=== PATIENT | female | born 1975 | race Caucasian/White ===

== ENCOUNTER 2025-05-21 11:43 | Emergency (ER) | payer OTHER, SELFPAY ==
[2025-05-21 11:47] VITALS: BP 143/80; PULSE 71; TEMP 37.2; O2SAT 96; BMI 25.8
--- NOTE | 2025-05-21 12:16 | ED.GENADUL1 ---
HPI HPI - General Adult General Chief complaint: Extremity Injury, Lower Stated complaint: LOWER EXTREMITY INJURY Time Seen by Provider: 05/21/25 12:07 Source: patient Mode of arrival: walk-in Limitations: no limitations History of Present Illness HPI narrative: Patient is a 49-year-old female that presents the emergency department with complaints of right ankle/foot swelling and pain after she tripped and fell down 1 step in her house. She has been ambulatory on it but the swelling is increasing and she has got some tingling into her foot. She denies any numbness. She wanted to get checked out as she is going to [facility] next week. Related Data Allergies Allergy/AdvReac Type Severity Reaction Status Date / Time Penicillins Allergy Severe Hives Verified 05/21/25 11:47 Opioid HPI Opioid Management Most Recent Opioid Data: Last Pain Scale 7 Today, 11:52 Review of Systems ROS Status of ROS 10 or more systems reviewed and unremarkable except as noted in history and below PFSH PFSH Social History Little interest or pleasure in doing things: not at all Feeling down, depressed, or hopeless: not at all Exam Narrative Exam Narrative: General: No distress, age-appropriate, patient ambulates with mildly antalgic gait. Skin: Warm, dry, no pallor. No rash. Head: Normocephalic, atraumatic. Eye: Pupils are equal, round and EOMI. No scleral icterus. Cardiovascular: Regular Rate and Rhythm without murmur, gallop or rub. Respiratory: No accessory muscle use or respiratory distress. Back: No midline thoracic or lumbar vertebral tenderness. Musculoskeletal: Full ROM of all extremities, no calf or popliteal tenderness. Right ankle lateral swelling, no ecchymosis. Deltoid and medial foot tenderness with palpation. Positive anterior drawer and lateral tilt test for pain, no instability. 2+ DP pulse palpated. Neurovascularly distally intact. Neurological: A&O x4. No cranial nerve dysfunction observed. No truncal ataxia. Moves all extremities. Sensation intact. Psychiatric: Cooperative and interactive. Normal mood and affect. Constitutional Vital Signs, click to edit/add: Last Vital Signs Temp 98.9 F 05/21/25 11:47 Pulse 71 05/21/25 11:47 Resp 18 05/21/25 11:47 BP 143/80 H 05/21/25 11:47 Pulse Ox 96 05/21/25 11:47 Documenting provider has reviewed patient's vital signs: yes Course Vital Signs Vital signs: Vital Signs Temperature 98.9 F 05/21/25 11:47 Pulse Rate 71 05/21/25 11:47 Respiratory Rate 18 05/21/25 11:47 Blood Pressure 143/80 H 05/21/25 11:47 Pulse Oximetry 96 05/21/25 11:47 Temperature 98.9 F 05/21/25 11:47 Pulse Rate 71 05/21/25 11:47 Respiratory Rate 18 05/21/25 11:47 Blood Pressure 143/80 H 05/21/25 11:47 Pulse Oximetry 96 05/21/25 11:47 Medical Decision Making MDM Narrative Medical decision making narrative: This is a 49-year-old female that tripped and fell down 1 step yesterday in her home. She has been ambulatory but reports increased swelling and some tingling into her foot now. She denies any numbness. She is traveling to [facility] next week and wanted get it checked out. On arrival patient sitting calmly on ED cart, ice on ankle. Pain is controlled. X-ray right foot/ankle ordered. Right foot and ankle x-rays negative for fracture or dislocation. No osseous abnormalities. I discussed results with patient and recommend limiting weightbearing, patient declines crutch use. She would like to try a walking boot. A tall cam walking boot was placed and patient can wear when out of bed. We discussed ROM exercises, elevation, compression, and ice. She can take OTC NSAIDs as needed for pain. She can wean out of the walking boot as soon as she can bear weight and ambulate without it without pain. She does have a follow-up with her PCP next week and would like to follow-up with her first. I recommended if pain is the same or worsening she should have an x-ray completed in 7 to 10 days. Patient was discharged in stable condition, pain controlled, with plan for close follow-up with PCP. Differential Diagnosis Differential Diagnosis: Right ankle sprain, ankle fracture, foot fracture Imaging Data X-ray right foot/ankle: Attestation: I have reviewed the pertinent imaging results. Radiologist's impression: ITS Impressions Ankle X-Ray 05/21/25 12:25 IMPRESSION: Soft tissue swelling without evidence of acute osseous abnormalities Impression dictated by: Berny Mancia M.D. 05/21/2025 1:02 PM Dictation Location: [email or web address] Electronically authenticated by: [id number] Y Date: 05/21/2025 13:02 Foot X-Ray 05/21/25 12:25 IMPRESSION:: Negative acute osseous abnormalities. Impression dictated by: Berny Mancia M.D. 05/21/2025 1:01 PM Dictation Location: [facility] Electronically authenticated by: [id number] Y Date: 05/21/2025 13:01 Discharge Plan Discharge Chief Complaint: Extremity Injury, Lower Clinical Impression: Ankle sprain Patient Disposition: Home, Self-Care Time of Disposition Decision: 13:26 Condition: Good Mode of Transportation: Private Vehicle Print Language: Liberian Instructions: Ankle Sprain (DC), Walking Boot (ED) Referrals: Yola Chaparro NP [Primary Care Provider] - 1 week Discharge Date/Time: 05/21/25 13:34
--- OUTSIDE RECORDS SUMMARY | 2025-05-21 12:19 | XMS_ITS | Clinical Summary ---
Author Organization [facility] Address [address], [address] [place] [address] Care Team Providers Care Fur Dressing Supervisor Name Role Phone Yola Moy APRN - PROTOTYPE FABRICATOR Primary Care Provider Allergies Active AllergyReactionsCriticalityNoted DateCommentsPenicillinsHives,RashMedium 02/04/2014 all over Medications MedicationSigDispense QuantityRefillsLast FilledStart DateEnd DateStatus Melatonin 10 MG TABS Indications:Primary insomniaTake 10 mg by mouth nightly 30 tablet 2Active polyethylene glycol (MIRALAX) 17 GM/SCOOP powder Mix 238 grams of Miralax with 64 ounces Gatorade (no red or purple) start drinking at 6:00 pm finish by 8:00 pm all of the prep 238 g 5Active fluticasone (FLONASE) 50 MCG/ACT nasal spray Indications:Allergic reaction, initial encounter,Acute non-recurrent pansinusitis,Acute effusion of both middle earsSPRAY 2 SPRAYS INTO EACH NOSTRIL EVERY DAY 1 each 5Active levocetirizine (XYZAL) 5 MG tablet Indications:Allergic reaction, initial encounter,Acute non-recurrent pansinusitis,Acute effusion of both middle earsTAKE 1 TABLET BY MOUTH EVERY DAY AT NIGHT 90 tablet 5Active omeprazole (PRILOSEC) 20 MG delayed release capsule Indications:Gastroesophageal reflux disease without esophagitisTAKE 1 CAPSULE BY MOUTH EVERY DAY IN THE MORNING BEFORE BREAKFAST 90 capsule 5Active FLUoxetine (PROZAC) 10 MG capsule Indications:Mood swings,Depression, unspecified depression typeTAKE 1 CAPSULE BY MOUTH EVERY DAY 90 capsule 5ActiveHospital, Clinic, or Other Facility Administered Medication Ordered DoseRouteFrequencyStart DateEnd DateStatus triamcinolone acetonide (KENALOG-40) injection 40 mg Indications:Allergy, subsequent udiauocok72 cpWFPPTC86/27/2024Active Active Problems ProblemNoted DateDiagnosed AgieAdjlyx23/25/1897Vqinlkqcec06/20/2024Mood swings 09/07/2023Gastroesophageal reflux disease without miphxxacpns23/20/2024ody mass index (BMI) of 29.0-29.9 in adult09/07/2023Fibroadenosis of xesrey7304/30/2022 Gastroesophageal reflux disease with gekgoiplnva18/13/2022ther fatigue 04/22/2022rimary rjnftwfy28/05/2022bnormal menstrual hpyimas5904/22/2022 Epigastric pain05/06/2017Breast lump on right side at 11 o'clock position 09/14/2016 Overview (09/14/2016): 09/14/2016 Referred for breast bx Migraine gdwavrcu79/29/2015 Assessment & Plan (06/01/2024 4:56 PM EST): Doing well on current medication Resolved Problems ProblemNoted DateDiagnosed DateResolved DateScreen for colon ropkdu6507/24/2024 08/23/2024Screen for colon sdnvdq14504/09/2024Screen for colon cancer /Screening, lipid/10/2021 Encounters DateTypeDepartmentCare YoojWsojbpadfbs57/24/2025Refill [address] [address] Yola Moy, HEAD STILL OPERATOR - PROTOTYPE FABRICATOR Medication Vkbivn9703/07/2025 2:30 PM EDTOffice Visit [address] [place] [address] Yola Moy, HEAD STILL OPERATOR - PROTOTYPE FABRICATOR Overweight with body mass index (BMI) of 26 to 26.9 in adult (Primary Dx); Weight gainfrom Last 3 Months Immunizations ImmunizationAdministration DatesNext DueCOVID-19, Inactive, MODERNA BLUE border, Primary or Immunocompromised, (age 12y+)11/09/2020,10/12/2020Influenza Vaccine, unspecified llchkmokzet36/11/2017Influenza, FLUARIX, FLULAVAL, FLUZONE (age 6 mo+) and AFLURIA, (age 3 y+), Quadv PF, 0.5mL03/25/2023,03/31/2018,05/18/2016 Influenza, FLUCELVAX, (age 6 mo+), MDCK, Quadv PF, 0.5mL04/22/2022TDaP, ADACEL (age 10y-64y), BOOSTRIX (age 10y+), IM, 0.5mL03/31/2018 Family History Medical HistoryRelationNameCommentsBreast CancerMaternal GrandmotherThyroid DiseaseMotherRelationNameStatusCommentsBrother 1AliveBrother 2AliveFatherAlive Maternal GrandmotherAliveMotherAliveSisterAlive Social History Tobacco UseTypesPacks/DayYears UsedDateSmoking Tobacco: NeverSmokeless Tobacco: Never Tobacco Cessation:Counseling Given: Not Answered Alcohol UseStandard Drinks/WeekCommentsYes0 (1 standard drink = 0.6 oz pure alcohol)Very minimal, like twice a month.Overall Financial Resource Strain (CARDIA)AnswerDate RecordedHow hard is it for you to pay for the very basics like food, housing, medical care, and heating?Not hard at all05/25/2024HQ-2 AnswerDate RecordedPHQ-9 Total Nyaia076Exercise Vital SignAnswerDate RecordedOn average, how many days per week do you engage in moderate to strenuous exercise (like a brisk walk)?4 days10/08/2024On average, how many minutes do you engage in exercise at this level?40 min10/08/2024Hunger Vital SignAnswerDate RecordedWithin the past 12 months, you worried that your food would run out before you got the money to buymore.Never true05/25/2024Within the past 12 months, the food you bought just didn't last and you didn't have money to get more.Never true05/25/2024RAPARE - TransportationAnswerDate RecordedLack of Transportation (Medical)Not on file05/25/2024In the past 12 months, has lack of transportation kept you from meetings, work, or from getting things needed for daily living?No05/25/2024Housing Stability Vital SignAnswerDate Recorded Unable to Pay for Housing in the Last YearNot on file03/25/2023Number of Places Lived in the Last YearNot on file03/25/2023In the last 12 months, was there a time when you did not have a steady place to sleep or slept in annaelter (including now)?No03/25/2023Housing Stability Vital SignAnswerDate Recorded Unable to Pay for Housing in the Last YearNot on file05/25/2024Number of Times Moved in the Last YearNot on file05/25/2024t any time in the past 12 months, were you homeless or living in a senior living (including now)?No05/25/2024Food InsecurityAnswerDate RecordedWithin the past 12 months, you worried that your food would run out before you got the money to buymore.Within the past 12 months, the food you bought just didn't last and you didn't have money to get more.regnantCommentsNoSex and Gender InformationValueDate RecordedSex Assigned at UxetgTrdlfk59/24/2025 6:06 PM ESTLegal SexFemale 08/28/2012 5:43 PM ESTGender InbstxsbTwgwof76/24/2025 6:06 PM ESTSexual OrientationNot on file Last Filed Vital Signs Vital SignReadingTime TakenCommentsBlood Zpscilmk858/ 2:39 PM EDT Sixsa6811/20/2025 2:39 PM BTSLyffuuzopxj09.2 ??C (97.2 ??F)03/07/2025 2:39 PM EDTRespiratory Mihp433203/07/2025 2:39 PM EDTOxygen Zdwejcaxoq65%03/07/2025 2:39 PM EDTInhaled Oxygen Concentration--Rhjiqj01.4 kg (175 lb)03/07/2025 2:39 PM EDT Lickvx986.7 cm (5' 8 )03/07/2025 2:39 PM EDTBody Mass Index26.61003/07/2025 2:39 PM EDT Plan of Treatment DateTypeDepartmentCare Team (Latest Contact Info)Xywfrvlhtcu45/11/2025 1:20 PM ESTOffice Visit [facility] [address] [place], [place] [id number] Yola Moy, HEAD STILL OPERATOR - PROTOTYPE FABRICATOR [address] [place] [address] PHYSICAL AND SURGICAL CLEARANCEHealth MaintenanceDue DateLast DoneCommentsHIV kqszji2812/19/1992Hepatitis C qkiqir1312/20/1995Hepatitis B vaccine (1 of 3 - 19+ 3- dose series)1996FIT/FOBT: Average risk2022Fecal-DNA (Cologuard): Average risk2022Sigmoidoscopy/CT sdmwfgffepyn42/03/2023epression Ycqpmrghyk25/04/202504/10/2023Flu vaccine (#1)/11/2023, 03/25/2023, 04/22/2022, Additional history existsCOVID-19 Vaccine ( season) /, 06/07/2021, 11/09/2020, Additional history existsBreast cancer /07/2024, 11/15/2023, 05/05/2022, Additional history existsDTaP/Tdap/Td vaccine (2 - Td or Tdap)/7736Spmmfs45/20/2029 09/07/2023, 04/22/2022, 06/04/2021, Additional history existsColonoscopy 505/5Colorectal Cancer Zherkk255Cervical cancer screen DiscontinuedHPV (without or with Pap)Eplggrzsgazr92/19/2016Pap smearDiscontinued 02/04/2016Diabetes wvqxlzUkixrfluuvcl18/17/2021, 01/11/2020Depression Screen Yeuuynwozauo59/04/2024Hepatitis A vaccineAged OutNo longer eligible based on patient's age to complete this topicHib vaccineAged OutNo longer eligible based on patient's age to complete this topicMeningococcal (ACWY) vaccineAged OutNo longer eligible based on patient's age to complete this topicMeningococcal B vaccineAged OutNo longer eligible based on patient's age to complete this topic Pneumococcal 0-49 years VaccineAged OutNo longer eligible based on patient's age to complete this topicPolio vaccineAged OutNo longer eligible based on patient's age to complete this topic Procedures Procedure NamePriorityDate/TimeAssociated DiagnosisCommentsMAM ABHILASH DIGITAL SCREEN SELF REFERRAL W OR WO CAD FTIYMUANTJovcftx15/01/2025 7:56 AM EDT Visit for screening mammogram LIPID GIJBMWoukmif19/20/2024 Mood swings Gastroesophageal reflux disease without esophagitis Body mass index (BMI) of 29.0-29.9 in adult Migraine without aura and with status migrainosus, not intractable Depression, unspecified depression type Primary insomnia Wellness examination Colon cancer screening COMPREHENSIVE METABOLIC PANEL, ICIXNHEZbksfzn94/17/2021 11:43 PM EST INSPECTOR BICYCLE JXWLJWYEPfbsuah46/19/2016 1:32 PM EDT HUMAN PAPILLOMAVIRUS (HPV) DNA PROBE THIN PREP HIGH BMIEIhtkpcj30/19/2016 11:01 AM EDT from Last 3 Months or Most Recently Relevant to Health Maintenance Results * FRANKIE ABHILASH DIGITAL SCREEN SELF REFERRAL W OR WO CAD BILATERAL (11/16/2024 7:56 AM EDT)Anatomical RegionLateralityModalityBreastBilateralMammographySpecimen (Source)Anatomical Location / LateralityCollection Method / VolumeCollection TimeReceived Time11/16/2024 5:09 PM EDT Impressions 11/16/2024 5:11 PM EDT No evidence of malignancy seen in either breast. Advise annual screening mammography. BREAST DENSITY SUMMARY C: The breasts are heterogeneously dense which may obscure small masses. Breast tissue can be either dense or not dense. Dense tissue makes it harder to find breast cancer on a mammogram and also raises the risk of developing breast cancer. Your breast tissue is ??DENSE. In some people with dense tissue, other imaging tests in addition to mammogram may help find cancers. Talk to your health care provider about breast density, risks ??for breast cancer, and your individual situation. BI-RADS 2 BIRADS: BIRADS - CATEGORY 2 Benign Findings. ??Normal interval follow-up is recommended in 12 months. OVERALL ASSESSMENT - BENIGN A letter of notification will be sent to the patient regarding the results. The [employer] recommends annual mammograms for women 40 years and older. Performing Facility: [facility] [address] [place] [address] [address] [place], [place] [address] Narrative 11/16/2024 5:11 PM EDT EXAMINATION: SCREENING DIGITAL BILATERAL MAMMOGRAM WITH TOMOSYNTHESIS, 11/16/2024 TECHNIQUE: Screening mammography of the bilateral breasts was performed with tomosynthesis. ??2D standard and 3D tomosynthesis combination imaging performed through both breasts in the MLO and CC projection. ??Computer aided detection was utilized in the interpretation of this exam. COMPARISON: 15 November 2023; 09 May 2022 HISTORY: Screening. Positive family history of breast cancer; maternal grandmother at 85. ??No HRT therapy. ??We left breast biopsy in the past, benign. ??TC score 14.98 FINDINGS: BREAST COMPOSITION: The breasts are heterogeneously dense, which may obscure small masses. Bilateral breasts are composed of heterogeneously dense parenchyma. ??No skin thickening, nipple contour changes, suspicious calcifications, suspicious masses, areas of architectural distortion or significant interval changes are noted. ??A biopsy marker is present in the left breast. Authorizing ProviderResult TypeResult StatusKelsawyer Moy HEAD STILL OPERATOR - PROTOTYPE FABRICATOR IMG MAMMOGRAPHY ORDERABLESFinal Result * Lipid Panel (09/07/2023)ComponentValueRef RangeTest MethodAnalysis Time Performed AtPathologist SignatureCholesterol, Wjcax710ds/bTRDL8036 - 70 mg/dL LDL Srjrtkvnje286 - 160 mg/wXZkonomzbdbjlg37ho/dLChol/HDL Ratio2.6VLDL Cholesterol non KNU664Tnxpmvci (Source)Anatomical Location / Laterality Collection Method / VolumeCollection TimeReceived TimeBloodBLOOD SPECIMEN / Ytqijqd6009/07/2023 Narrative Authorizing ProviderResult TypeResult StatusYola Moy [facility] CHEMISTRY ORDERABLESFinal Result * (ABNORMAL) Comprehensive Metabolic Panel, Fasting (06/04/2021 11:43 PM EST) ComponentValueRef RangeTest MethodAnalysis TimePerformed AtPathologist SignatureGlucose, Yduytxq3332 - 99 mg/dL06/04/2021 11:43 PM [facility] QKYYLZITHLYSLEQ12(H)6 - 20 mg/dL06/04/2021 11:43 PM [facility] Creatinine0.850.50 - 0.90 mg/dL06/04/2021 11:43 PM [facility] BUN/Creatinine RatioNOT REPORTED9 - 11:43 PM [facility]ORATORIESCalcium9.68.6 - 10.4 mg/dL06/04/2021 11:43 PM [facility] GZMSCGXVWVJDUyuiqt790032 - 144 mmol/L108/04/2020 11:43 PM [facility] Potassium4.33.7 - 5.3 mmol/L108/04/2020 11:43 PM [facility]ORATORIESChloride 86707 - 107 mmol/L108/04/2020 11:43 PM [facility] SKDPESHHRGHYMO528(L)20 - 31 mmol/L108/04/2020 11:43 PM [facility]OR[facility]IESAnion Gap18(H)9 - 17 mmol/L 06/04/2021 11:43 PM [facility]ORATORIESAlkaline Qwsqdcbiuon1022 - 104 U/L 06/04/2021 11:43 PM [facility] DMEPNSIHOYXXVHG012 - 33 U/L108/04/2020 11:43 PM [facility] QWXIQGCJWKOSEUY40<32 U/L108/04/2020 11:43 PM [facility] Total Bilirubin0.480.3 - 1.2 mg/dL06/04/2021 11:43 PM [facility] Total Protein7.76.4 - 8.3 g/dL06/04/2021 11:43 PM [facility]IESAlbumin 4.63.5 - 5.2 g/dL06/04/2021 11:43 PM [facility]IESAlbumin/Globulin Ratio1.51.0 - 2.511 11:43 PM [facility]OR[facility]IESGFR Non->60>60 mL/min06/04/2021 11:43 PM [facility]ORATORIESGFR >60>60 mL/min06/04/2021 11:43 PM [facility]ATORIESGFR Comment 06/04/2021 11:43 PM [facility] LABORATORIESComment: Average GFR for 40-49 years old: 99 mL/min/1.73sq m Chronic Kidney Disease: <60 mL/min/1.73sq m Kidney failure: <15 mL/min/1.73sq m ? eGFR calculated using average adult body mass. Additional eGFR calculator available at: ? http://www.[employer]/multiple_crcl_2012.htm ? GFR StagingNOT UYRUMFEB77/17/2021 11:43 PM ESTM[facility] LABORATORIESSpecimen (Source)Anatomical Location / LateralityCollection Method / VolumeCollection TimeReceived Time06/04/2021 11:43 PM EST06/04/2021 11:43 PM EST Narrative Authorizing ProviderResult TypeResult StatusCelio Villareal MDCHEMISTRY ORDERABLESFinal ResultPerforming OrganizationAddressCity/State/ZIP CodePhone Number [address] [phone] * INSPECTOR BICYCLE Cytology (02/04/2016 1:32 PM EDT)ComponentValueRef RangeTest Method Analysis TimePerformed AtPathologist SignatureCytology Report(NOTE) [id number] [facility] ??LABORATORIES CONSULTING PATHOLOGISTS [facility] ANATOMIC PATHOLOGY [address] [place] [address]. ??[place], [place] [address] GYNECOLOGIC CYTOLOGY REPORT Patient Name: ROGER LU MR#: [id number] Specimen #[id number] Source: 1: Cervical material, (ThinPrep vial, Imaging-assisted review) Clinical History Z01.419 Routine side panel hanger exam without abnormal findings Z11.51 Encounter for screening for HPV Co-Test: ??ThinPrep Pap with high risk HPV testing LMP: ??01/28/2016 INTERPRETATION Cervical material, (ThinPrep vial, Imaging-assisted review): Specimen Adequacy: ?Satisfactory for evaluation. ?- Endocervical/transformation zone component present. ?- Scant cellularity. Descriptive Diagnosis: ?Negative for intraepithelial lesion or malignancy. Comments: ?High Risk HPV testing was ordered. Photocomposing Keyboard Operator: ?? ILSA Thomson(ASCP) Electronically Signed Out /02/20/2016 Procedure/Addendum HPV Procedure Report ? Date Ordered: ? 02/05/2016 ? Status: Signed Out ?Date Complete: ? 02/05/2016 ? By: ILSA Rapp(ASCP) ?Date Reported: ? 02/20/2016 ? INTERPRETATION Taryn HPV DNA High Risk ? HPV Sample ? Thin Prep ?(Ref Range) HPV Type 16 ? Not Detected ?(Not Detected) HPV Type 18 ? Not Detected ?(Not Detected) Other High Risk HPV ? Not Detected ?(Not Detected) ??This test amplifies and detects DNA of 14 high-risk HPV types associated with cervical cancer and its precursor lesions (HPV types 16, 18, 31, 33, 35, 39, 45, 51, 52, 56, 58, 59, 66, and 68). Sensitivity may be affected by specimen collection methods, stage of infection, and the presence of interfering substances. ??Results should be interpreted in conjunction with other available laboratory and clinical data. ??A negative high-risk HPV result does not exclude the possibility of future cytologic HSIL or underlying CIN2-3 or cancer. This test is intended for medical purposes only and is not valid for the evaluation of suspected sexual abuse or for other forensic purposes. ??02/20/2016 12:00 AM [facility] LABSpecimen (Source) Anatomical Location / LateralityCollection Method / VolumeCollection Time Received Time02/04/2016 1:32 PM EDT02/05/2016 1:32 PM EDT Narrative Authorizing ProviderResult TypeResult StatusAfshan Leon APRN - JOSE PATHOLOGY/CYTOLOGY ORDERABLESEdited Result - FinalPerforming OrganizationAddress City/State/ZIP CodePhone Number [facility] [address] [phone] * Human papillomavirus (HPV) DNA probe thin prep high risk (02/04/2016 11:01 AM EDT)ComponentValueRef RangeTest MethodAnalysis TimePerformed AtPathologist SignatureHPV SOURCECERVICAL CQTDDHVI45/20/2016 11:02 AM EDTMHPN LABHPV Sample .THIN PREP02/05/2016 11:02 AM EDTMHPN LABHPV, Genotype 16Not DetectedNOTDET 02/06/2016 2:07 PM EDTMHPN LABHPV, Genotype 18Not CmuppevtANVPRS79/21/2016 2:07 PM EDTMHPN LABHPV, High Risk OtherNot RjfsgudsTLSFRL26/21/2016 2:07 PM EDTMHPN LABHPV, Pqfiwfbvqbidbe78/21/2016 2:07 PM EDTMHPN LABComment: This test amplifies and detects DNA of 14 high-risk HPV types associated with cervical cancer and its precursor lesions (HPV types 16,18, 31, 33, 35, 39, 45, 51, 52, 56, 58, 59, 66, and 68). ? Sensitivity may be affected by specimen collection methods, stage of infection, and the presence of interfering substances. Results should be interpreted in conjunction with other available laboratory and clinical data. A negative high-risk HPV result does not exclude the possibility of future cytologic HSIL or underlying CIN2-3 or cancer. ? This test is intended for medical purposes only and is not valid for the evaluation of suspected sexual abuse or for other forensic purposes. Performed at [facility] [address] [place] [address] ([phone] Specimen (Source)Anatomical Location / LateralityCollection Method / Volume Collection TimeReceived Time02/04/2016 11:01 AM EDT02/05/2016 11:01 AM EDT Narrative Authorizing ProviderResult TypeResult StatusAfshan Leon APRN - CHEMO HEMATOLOGY ORDERABLESFinal ResultPerforming OrganizationAddressCity/State/ZIP CodePhone Number [facility] [address] [phone] [facility] from Last 3 Months or Most Recently Relevant to Health Maintenance Insurance * Guarantor: Roger Lu TypeRelation to PatientDate of BirthPhone Billing AddressPersonal/PnckoqOkuw63/03/1976 [facility] [place] [address] * Guarantor: Roger Lu TypeRelation to PatientDate of BirthPhone Billing AddressPersonal/ZsxpepDctu44/03/1978 [facility] [place] [address] Care Teams Team MemberRelationshipSpecialtyStart DateEnd Date Yola Moy, HEAD STILL OPERATOR - PROTOTYPE FABRICATOR [address] [place] [address] [facility] - [facility] Embwecmi34/[facility]/24
--- OUTSIDE RECORDS SUMMARY | 2025-05-21 12:19 | XMS_ITS | Clinical Summary ---
Author Organization [facility] Address [id number] [address] 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 Name Role Phone Associates, [facility] Primary Care Provider Allergies Active AllergyReactionsCriticalityNoted DateCommentsPenicillinsHives,RashMedium 02/04/2014 Other reaction(s): Unknown all over Medications MedicationSigDispense QuantityRefillsLast FilledStart DateEnd DateStatus omeprazole (PriLOSEC) 20 mg capsule Take 1 capsule (20 mg total) by mouth in the morning.Active melatonin (MELATIN ORAL) Take by mouth.Active gejvdkohpr-jrsfbtlyyuptj-siwu (FIORICET, ESGIC) 50-325-40 mg per tablet Take 1 tablet by mouth every 4 (four) hours as needed for headaches.Active ibuprofen (MOTRIN) 800 mg tablet Take 1 tablet (800 mg total) by mouth every 8 (eight) hours as needed for pain. 60 tablet ctive docusate sodium (COLACE) 100 mg capsule Take 1 capsule (100 mg total) by mouth daily as needed for constipation. 30 capsule ctive Active Problems ProblemNoted DateDiagnosed DateS/P laparoscopic xszetsljhgob64/02/2023bnormal uterine bleeding (AUB)12/01/2022 Overview (12/01/2022): Added automatically from request for surgery [id number] Fibroadenosis of gydyyo5604/30/2022Gastro-esophageal reflux disease with uncoooqevwg55/13/2022Inconclusive xvqsnhswi53/13/2022Mastodynia of left breast 2Reflux dwvxgmuwh05/13/2022clerosing adenosis of left wbztny4104/30/2022 Breast lump on right side at 10 o'clock rinaplkf62/13/2022Other fatigue 04/22/2022rimary zrxzfojo80/05/2022Migraine yhoijysu91/29/2015 Family History Medical HistoryRelationNameCommentsBreast cancerMaternal GrandmotherThyroid diseaseMotherColon cancerNeg HxOvarian cancerNeg HxRelationNameStatusComments Maternal GrandmotherMother Social History Tobacco UseTypesPacks/DayYears UsedDateSmoking Tobacco: NeverSmokeless Tobacco: Never Tobacco Cessation:Counseling Given: Not Answered Alcohol UseStandard Drinks/WeekCommentsNot Currently0 (1 standard drink = 0.6 oz pure alcohol)ChildcareAnswerDate NggaausgGzcyutcfzHtqgafb12/11/2019Employment AnswerDate KrxmwgwzXlmhjesstaUjipbvd47/11/2019Hunger ScreeningAnswerDate RecordedWithin the past 12 months we worried whether our food would run out before we got money to buy more.Never True02/17/2023Within the past 12 months the food we bought just didn't last and we didn't have money to get more.Never True02/17/2023CommentsNoSex and Gender InformationValueDate RecordedSex Assigned at BirthNot on fileLegal TzmOuckby08/04/2015 4:52 PM EDTGender Identity Not on fileSexual OrientationNot on file Last Filed Vital Signs Vital SignReadingTime TakenCommentsBlood Xzslrcqu581/7609 1:45 PM EDT Vfkft6200 3:59 PM JUTEapyibxpjpo75 ??C (96.8 ??F)02/09/2023 11:20 AM EDT Respiratory Yshi9338 12:30 PM EDTOxygen Fiacalwrqn81%02/09/2023 3:59 PM EDTInhaled Oxygen Concentration--Napyaq48.6 kg (182 lb)03/24/2023 1:45 PM EDT Ygxdwn166.5 cm (5' 7.9 )03/24/2023 1:45 PM EDTBody Mass Index27.75003/24/2023 1:45 PM EDT Plan of Treatment Health MaintenanceDue DateLast DoneCommentsDepression Wjrykfxnx88/03/1990Tobacco Vuvvqvglr46/03/1990Adult BMI Phpfywpyz883COVID-19 Vaccine ( season)/, 06/07/2021, 11/09/2020, Additional history existsInfluenza Orvyvnd009/01/2023, 04/22/2022, 05/04/2021, Additional history existsDTaP,Tdap and Td Vaccines (2 - Td or Tdap)Pap EunkuYjhiosugjbrn93/03/2023, 09/18/2022 Medical Devices Not on file Procedures Procedure NamePriorityDate/TimeAssociated DiagnosisCommentsHIGH RISK HPV W/MARGIE Zbbffze2009/18/2022 5:19 AM EST Cervical cancer screening Encounter for well woman exam with routine gynecological exam from Last 3 Months or Most Recently Relevant to Health Maintenance Results * High risk HPV w/margie (09/18/2022 5:19 AM EST)ComponentValueRef RangeTest MethodAnalysis TimePerformed AtPathologist SignatureHpv specimen typeThinPrep 09/21/2022 5:19 AM ESTSUNQUESTHpv 16NegativeNegative^Oqgylfiz90/07/2023 6:06 AM [facility] LABHpv 18NegativeNegative^Jygcluzf50/07/2023 6:06 AM [facility] LABOther high risk hpvNegative Negative^Vnahpyxa84/07/2023 6:06 AM [facility] LABComment: HPV types 31,33,35,39,45,52,56,58,59,66 and 68 DNA were undetectable. Specimen (Source)Anatomical Location / LateralityCollection Method / Volume Collection TimeReceived LllyABJSR47/03/2023 5:19 AM EST09/21/2022 5:20 AM EST Narrative Authorizing ProviderResult TypeResult StatusAnipeace Mccullough ALIVIA BLOOD ORDERABLESFinal ResultPerforming OrganizationAddressCity/State/ZIP CodePhone Number [facility] [address] [place] [address] from Last 3 Months or Most Recently Relevant to Health Maintenance Insurance * Guarantor: Rosita Lu TypeRelation to PatientDate of PhoneBilling AddressPersonal/DsbtfzOqzp94/03/1976 [facility] [place] [address] Care Teams Team MemberRelationshipSpecialtyStart DateEnd Date Associates, [facility] [address] [place] [address] PCP - GeneralInternal Medicine10/20/22
--- OUTSIDE RECORDS SUMMARY | 2025-05-21 12:19 | XMS_ITS | Patient Health Record ---
Author Organization [facility] in [place] Address [address] [place] [address] Care Team Providers Care Medical Office Clerk Name Role Phone Celio Lamb MD Primary Care Provider Unavailabl e Allergies Allergen (clinical drug ingredient) Drug/Non Drug Allergy documented on EMR Reaction Allergy Type Onset Date Status PenicillinUnknownDrug AllergyActive Reason For Referral No Information Medications Medication SIG (Take, Route, Frequency, Duration) Notes Start Date End Date Status Omeprazole 20 MG 1 capsules Orally Once a day; D uration: 30 ActiveAtivan 1 MG1 tablet Orally Once a day; Duration: 1 days02/16/2018 Not-TakingMiscellaneousBIRTH CONTROLNot-Taking Problems Problem Type SNOMED Code ICD Code Onset Dates Problem Status W/U Status Risk Notes Problem Reflux esophagitis (588933060) Reflux eso phagitis (K21.0) ActiveconfirmedProblemReflux gastritis (33347960)Reflux gastritis (K29.60)Active confirmedProblemExtremely dense breast composition (222275035)Dense breasts (R92.2)ActiveconfirmedProblemSclerosing adenosis of left breast (70738270128741642)Sclerosing adenosis of left breast (N60.22)Activeconfirmed ProblemBreast lump (12276899)Breast lump on left side at 12 o'clock position (N63)ActiveconfirmedProblemMastodynia of left breast (1239353785)Mastodynia of left breast (N64.4)ActiveconfirmedProblemFibroadenosis of breast (77269721) Adenosis of breast (N60.29)ActiveconfirmedProblemBreast mass (25334841)Left breast mass (N63.20)Activeconfirmed Plan Of Treatment No Information Insurance Providers Payer Name Payer Address Payer Phone Subscriber Number Group Number Insured Name Patient Relationship to Insured Coverage Start Date Coverage End Date MMO [employer] [address] [place], [place] [id number] Rosita Lu Self - patient is the insured 0 Medical (General) History Medical History History ICD Code Left Breast Mass No DefibrilatorNo PacemakerSurgical History Surgery Date(Month/Year) [facility] Left BBX 09/2016 open breast biopsy left FAILED [id number]
--- NOTE | 2025-05-21 12:25 | XR_ITS ---
The [place] [id number] Patient Name: ROGER FABIAN MRN: [id number] date: 1975 Sex: F Assigned Patient Location: ED.MAIN Current Patient Location: ED.MAIN Accession/Order Number: [id number] Exam Date: 05/21/2025 12:20 Report Date: 05/21/2025 13:02 At the request of: ZEESHAN DRAKE Procedure: XR ankle RT min 3V 3 views right ankle CLINICAL HISTORY: Fall medial and lateral pain COMPARISON: None FINDINGS: Bimalleolar soft tissue swelling. No evidence acute fractures or desiccation identified. Talar dome is intact. Zbll-uf-umedtife plantar calcaneal spurring. XR/XR ankle RT min 3V IMPRESSION: Soft tissue swelling without evidence of acute osseous abnormalities Impression dictated by: Berny Mancia M.D. 05/21/2025 1:02 PM Dictation Location: [place] [address] Electronically authenticated by: [id number] Y Date: 05/21/2025 13:02
--- NOTE | 2025-05-21 12:25 | XR_ITS ---
The [address] [address] Patient Name: ROGER FABIAN MRN: [id number] date: 1975 Sex: F Assigned Patient Location: ED.MAIN Current Patient Location: ED.MAIN Accession/Order Number: [id number] Exam Date: 05/21/2025 12:20 Report Date: 05/21/2025 13:01 At the request of: ZEESHAN DRAKE Procedure: XR foot RT min 3V 3 views of the right foot INDICATION: Fall, medial pain COMPARISON: None FINDINGS: No fracture or dislocation identified. Joint spaces preserved. Plantar calcaneal spurring noted. XR/XR foot RT min 3V IMPRESSION:: Negative acute osseous abnormalities. Impression dictated by: Berny Mancia M.D. 05/21/2025 1:01 PM Dictation Location: [place] [address] Electronically authenticated by: [id number] Y Date: 05/21/2025 13:01
== END 2025-05-21 13:34 | disposition home or self-care (01) ==
PROVIDERS: Emergency Provider Emergency Medicine; PCP Nurse Practitioner Family
DX: S93.401A Sprain of unspecified ligament of right ankle, initial encounter (principal); W10.8XXA Fall (on) (from) other stairs and steps, initial encounter
CPT/HCPCS: 73610; 73630; 99283